=== PATIENT | male | born 1965 | race Caucasian/White ===

== ENCOUNTER 2023-01-26 02:05 | Emergency (ER) | payer OTHER ==
[2023-01-26] MEDS ORDERED: Sodium Chloride 0.9% 10 ML Syringe FLUSH PRN (02:34)
[2023-01-26] MEDS ORDERED: Ketorolac 15 MG/ML SDV IVPUSH ONE (02:34)
== END 2023-01-26 04:25 | disposition home or self-care (01) ==
LOC: JP.ED 02:05
DX: M62.830 Muscle spasm of back (principal); M54.50 Low back pain, unspecified; E78.00 Pure hypercholesterolemia, unspecified; Z86.16 Personal history of COVID-19; Z87.891 Personal history of nicotine dependence; Z79.899 Other long term (current) drug therapy
CPT/HCPCS: 96374; 99283; J1885; J3360